=== PATIENT | female | born 1965 | race Caucasian/White ===

== ENCOUNTER 2018-05-14 15:10 | Outpatient (CLI) | payer OTHER ==
--- NOTE | 2018-05-15 06:16 | Diagnostic Imaging Report ---
TRINIDAD MONTEZ [facility] [address] [facility].[address] [id number] Report Submission Date: May 14, 2018 4:18:29 PM ASSISTANT PROSECUTING ATTORNEY Patient Study Name: CHRISTINE SCHREIBER Date: May 14, 2018 3:19:21 PM ASSISTANT PROSECUTING ATTORNEY Modality Type: DX Gender: F Description: PELVIS : 65 Institution: [facility] Physician: TRINIDAD MONTEZ AP pelvis History: Right-sided pain AP view of the pelvis demonstrates no significant degenerative findings of the right hip. There is mild superolateral migration of the left femoral head consistent with mild osteoarthritis of the left hip. The SI joints are not well profiled but appear grossly normal. No additional osseous abnormalities are noted. Impression: Mild osteoarthritis of the left hip. Electronically signed on May 14, 2018 4:18:29 PM ASSISTANT PROSECUTING ATTORNEY by: Valorie WRIGHT
--- NOTE | 2018-05-15 06:17 | Diagnostic Imaging Report ---
TRINIDAD MONTEZ [facility] [address] [facility].[address] [id number] Report Submission Date: May 14, 2018 4:17:18 PM RECONSTRUCTIVE DENTIST Patient Study Name: CHRISTINE SCHREIBER Date: May 14, 2018 3:21:10 PM RECONSTRUCTIVE DENTIST Modality Type: DX Gender: F Description: PELVIS : 65 Institution: [facility] Physician: TRINIDAD MONTEZ Right hip History: Pain. No injury AP and lateral projections of the right hip demonstrate no osseous abnormalities. There are no degenerative findings. Impression: Unremarkable right hip. Electronically signed on May 14, 2018 4:17:18 PM RECONSTRUCTIVE DENTIST by: Valorie WRIGHT
--- NOTE | 2018-05-15 06:18 | Diagnostic Imaging Report ---
TRINIDAD MONTEZ [facility] [address] [facility].[address] [id number] Report Submission Date: May 14, 2018 4:16:39 PM DISK RECORDIST Patient Study Name: CHRISTINE SCHREIBER Date: May 14, 2018 3:17:54 PM DISK RECORDIST Modality Type: DX Gender: F Description: SPINE : 65 Institution: [facility] Physician: TRINIDAD MONTEZ Lumbar spine History: Pain. No injury AP and lateral projections of the lumbar spine demonstrate mild disc space narrowing at L1/2 and L2/3. There is mild anterior spondylosis at T12/L1, L1/2 and L2/3. Otherwise, vertebral body height is maintained. Intervertebral disc space height is maintained at all other levels. There is no spondylolisthesis or spondylolysis. Impression: Mild degenerative findings at the thoracolumbar junction and upper lumbar spine as described. Electronically signed on May 14, 2018 4:16:39 PM DISK RECORDIST by: Valorie WRIGHT
== END 2018-05-14 15:11 ==
LOC: RAD 15:10
PROVIDERS: ATTEND Family Medicine
DX: M25.551 Pain in right hip (principal); M16.12 Unilateral primary osteoarthritis, left hip; M54.5 Low back pain; M47.815 Spondylosis without myelopathy or radiculopathy, thoracolumbar region; M47.816 Spondylosis without myelopathy or radiculopathy, lumbar region
CPT/HCPCS: 72100; 72170; 73502